=== PATIENT | female | born 1990 | race Caucasian/White ===

== ENCOUNTER → 2016-11-29 | Outpatient (CLI) | payer BC ==
--- NOTE | 2016-11-29 17:01 | US ---
EXAMINATION TYPE: US pelvis complete transvag DATE OF EXAM: 11/29/2016 COMPARISON: NONE CLINICAL HISTORY: R10.2 Pelvic and perineal pain. TECHNIQUE: Transvaginal (TV) and Transabdominal (TA) Date of LMP: 2013 EXAM MEASUREMENTS: Uterus: 8.3 x 3.0 x 4.2 cm Endometrial Stripe: 2.6 cm Right Ovary: 2.2 x 2.1 x 3.0 cm Left Ovary: 2.4 x 2.1 x 2.2 cm 1. Uterus: Anteverted IUD 2. Endometrium: wnl 3. Right Ovary: 1.1 x 1.4 x 1.2 cm cyst 4. Left Ovary: small follicular cysts 5. Bilateral Adnexa: wnl 6. Posterior cul-de-sac: wnl IMPRESSION: IUD appears in good position. Normal uterus and endometrium. 1.4 x 1.1 cm right ovarian cyst. No solid adnexal mass.
== END | disposition home or self-care (01) ==
LOC: RADUSWWP 16:17
PROVIDERS: ATTEND Family Medicine
DX: N83.201 Unspecified ovarian cyst, right side (principal); R10.2 Pelvic and perineal pain
CPT/HCPCS: 76830; 76856